=== PATIENT | male | born 1975 | race Caucasian/White ===

== ENCOUNTER 2018-12-22 11:54 | Day surgery (SDC) | payer BC ==
[~2018-12-22] VITALS: Ht 172.7 cm; Wt 107.8 kg
[~2018-12-22 11:54] MED LIST: CEPH500 PO; HYDACE5 PO; OXYACE5T PO; RXHYDACE PO
[2018-12-22] MEDS ORDERED: LISI20 PO (12:20)
--- NOTE | 2018-12-22 13:26 | NUR ---
12/22/18 [id number] Jorge Oglesby INJECTED MYLICON INTO BX PORT PER DR HOFFMAN
== END 2018-12-22 14:38 | disposition home or self-care (01) ==
LOC: ORSCSDS 11:54
PROVIDERS: Internal Medicine Gastroenterology
PROC: 0DBM8ZX Excision of Descending Colon, Via Natural or Artificial Opening Endoscopic, Diagnostic (ICD-10-PCS; principal; 2018-12-22 13:30)
PROC: 0DBH8ZX Excision of Cecum, Via Natural or Artificial Opening Endoscopic, Diagnostic (ICD-10-PCS; principal; 2018-12-22 13:30)
DX: Z12.11 Encounter for screening for malignant neoplasm of colon (principal); Z80.0 Family history of malignant neoplasm of digestive organs; D12.0 Benign neoplasm of cecum; D12.4 Benign neoplasm of descending colon; K57.30 Diverticulosis of large intestine without perforation or abscess without bleeding; K64.8 Other hemorrhoids; I10 Essential (primary) hypertension; Z87.891 Personal history of nicotine dependence; Z79.899 Other long term (current) drug therapy
CPT/HCPCS: 88305; J1980; J2250; J2704; J7120

== ENCOUNTER 2018-12-30 07:39 | Day surgery (SDC) | payer BC ==
[~2018-12-30] VITALS: Ht 172.7 cm; Wt 236.6 kg
[~2018-12-30 07:39] MED LIST changes: +LISI20 PO
== END 2018-12-30 11:30 | disposition home or self-care (01) ==
LOC: ORSCSDS 07:39
PROVIDERS: Surgery
PROC: 0WUF0JZ Supplement Abdominal Wall with Synthetic Substitute, Open Approach (ICD-10-PCS; principal; 2018-12-30 09:00)
DX: K42.0 Umbilical hernia with obstruction, without gangrene (principal); I10 Essential (primary) hypertension; E66.01 Morbid (severe) obesity due to excess calories; Z68.36 Body mass index [BMI] 36.0-36.9, adult; Z79.899 Other long term (current) drug therapy
CPT/HCPCS: C1781; J0690; J1100; J1885; J2370; J2405; J2704; J3010; J7120

== ENCOUNTER 2021-11-28 09:51 | Day surgery (SDC) | payer OTHER ==
[~2021-11-28] VITALS: Ht 175.3 cm; Wt 105.4 kg
== END 2021-11-28 12:12 | disposition home or self-care (01) ==
LOC: ORSCSDS 09:51
PROVIDERS: Internal Medicine Gastroenterology
PROC: 0DBN8ZX Excision of Sigmoid Colon, Via Natural or Artificial Opening Endoscopic, Diagnostic (ICD-10-PCS; principal; 2021-11-28 11:15)
PROC: 0DBM8ZX Excision of Descending Colon, Via Natural or Artificial Opening Endoscopic, Diagnostic (ICD-10-PCS; principal; 2021-11-28 11:15)
PROC: 0DBH8ZX Excision of Cecum, Via Natural or Artificial Opening Endoscopic, Diagnostic (ICD-10-PCS; principal; 2021-11-28 11:15)
DX: Z12.11 Encounter for screening for malignant neoplasm of colon (principal); Z86.010 Personal history of colon polyps; Z80.0 Family history of malignant neoplasm of digestive organs; D12.4 Benign neoplasm of descending colon; D12.5 Benign neoplasm of sigmoid colon; D12.0 Benign neoplasm of cecum; I10 Essential (primary) hypertension; K57.30 Diverticulosis of large intestine without perforation or abscess without bleeding; K64.4 Residual hemorrhoidal skin tags; Z79.899 Other long term (current) drug therapy
CPT/HCPCS: 88305; J2704; J7120

== ENCOUNTER 2025-06-13 12:17 | Day surgery (SDC) | payer OTHER ==
[~2025-06-13] VITALS: Ht 172.7 cm; Wt 107.7 kg
[2025-06-13] MEDS ORDERED: NS 500 ML IV ONE (15:59)
[2025-06-13 16:57] VITALS: BP 115/83
== END 2025-06-13 16:30 | disposition home or self-care (01) ==
LOC: ORSCSDS 12:17
PROVIDERS: Internal Medicine Gastroenterology
PROC: 0DJD8ZZ Inspection of Lower Intestinal Tract, Via Natural or Artificial Opening Endoscopic (ICD-10-PCS; principal; 2025-06-13 14:00)
DX: Z12.11 Encounter for screening for malignant neoplasm of colon (principal); K57.30 Diverticulosis of large intestine without perforation or abscess without bleeding; Z86.0101 Personal history of adenomatous and serrated colon polyps; Z80.0 Family history of malignant neoplasm of digestive organs; I10 Essential (primary) hypertension
CPT/HCPCS: J2704; J7120